=== PATIENT | female | born 1985 | race Caucasian/White ===

== ENCOUNTER → 2016-03-07 | Outpatient (CLI) | payer OTHER ==
--- NOTE | 2016-03-07 09:03 | DX ---
Left Ankle 3 Views History: Slipped on ice today with pain. Comparison: None available. Findings: No fracture is identified. Alignment is normal. Bone mineralization is normal. The talar d ome and ankle mortise are intact. There is mild lateral soft tissue swelling. There is no joint effus ion. Impression: No acute osseous findings.
== END ==
LOC: BMCIMAGING 08:16
PROVIDERS: ATTEND Family Medicine
DX: M25.572 Pain in left ankle and joints of left foot (principal)

== ENCOUNTER → 2016-07-04 | Outpatient (CLI) | payer OTHER | LOC: FIMAGING 14:08 | PROVIDERS: ATTEND Registered Nurse | DX: L02.412 Cutaneous abscess of left axilla (principal) ==